=== PATIENT | male | born 1980 | race Caucasian/White ===

== ENCOUNTER 2017-06-27 00:56 | Emergency (ER) | payer SELFPAY ==
[2017-06-27 00:56] VITALS: BMI 33.3
[2017-06-27 01:22] VITALS: RESP 20; TEMP 98.1; O2SAT 98
--- NOTE | 2017-06-27 01:58 | C.PDOC ---
History Of Present Illness 36 yo male come for evaluation of urinary frequency, dysuria gradually developed for past 3 days. Today, developed Right sided lower back pain. Admits , (+) unprotected sexual contact. Otherwise, pt denies fever, chills, sore throat, abd. pian, N/V, hematuria, testicular pain or swelling, penile discharges or lesion. Ambulate to Ed for evaluation, not in any apparent distress. Time Seen by Provider: 06/27/17 01:27 Chief Complaint (Nursing): Male Genitourinary History Per: Patient Past Medical History Reviewed: Historical Data, Nursing Documentation, Vital Signs Vital Signs: Last Vital Signs Temp 98.1 F 06/27/17 01:19 Pulse 69 06/27/17 01:19 Resp 20 06/27/17 01:19 BP 126/81 06/27/17 01:19 Pulse Ox 98 06/27/17 02:55 - Medical History PMH: No Chronic Diseases, Sexually Transmitted Disease Family History: States: Unknown Family Hx - Social History Hx Tobacco Use: Yes Hx Alcohol Use: Yes Hx Substance Use: Yes - Immunization History Hx Tetanus Toxoid Vaccination: Yes Hx Influenza Vaccination: No Hx Pneumococcal Vaccination: No Review Of Systems Except As Marked, All Systems Reviewed And Found Negative. Constitutional: Negative for: Fever, Chills ENT: Negative for: Throat Pain Cardiovascular: Negative for: Chest Pain Respiratory: Negative for: Cough, Shortness of Breath Gastrointestinal: Negative for: Vomiting, Abdominal Pain, Diarrhea Genitourinary: Positive for: Dysuria, Frequency. Negative for: Hematuria, Penile Discharge, Scrotal Pain, Penile Pain Musculoskeletal: Positive for: Back Pain Skin: Negative for: Rash Neurological: Negative for: Weakness, Numbness Physical Exam - Physical Exam Appears: Well, Non-toxic, No Acute Distress Skin: Normal Color, Warm, Dry, No Rash Head: Normacephalic Eye(s): bilateral: PERRL Nose: No Flaring, No Discharge Oral Mucosa: Moist, No Drooling Throat: No Erythema, No Drooling Neck: Trachea Midline, Supple Cardiovascular: Rhythm Regular Respiratory: No Decreased Breath Sounds, No Accessory Muscle Use, No Stridor, No Wheezing Gastrointestinal/Abdominal: Soft, No Tenderness, No Distention, No Guarding, No Rebound Back: No CVA Tenderness, Paraspinal Tenderness (Right lumbar) Extremity: Normal ROM, No Pedal Edema, No Deformity, No Swelling Neurological/Psych: Oriented x3, Normal Speech, Normal Motor, Normal Sensation, Normal Reflexes ED Course And Treatment O2 Sat by Pulse Oximetry: 98 Pulse Ox Interpretation: Normal Progress Note: On re-evlauation, pt is afebrile, hemodynamicaly stable. NOn- toxic. Tolerate po well in ED. ENT: no acute findings, uvula midline, no edema. Neck: Supple, (-) meningeal sign. Lungs: CTA B/L, BS equal B/L. Abd: benign, (-) guaridng, (-) rebound. Back: (-) CVA tenderness. UA results review , no acute findings. Pt has clinical findings c/w dysuria s/p unprotected sexual contact r/o STD. Pt advised. Ref. to Follow up with PMD, Urology in 2- 3 days for re-eval. return to Ed if any worsening or new changes. Disposition Counseled Patient/Family Regarding: Studies Performed, Diagnosis, Need For Followup, Rx Given - Disposition Referrals: [facility] at [facility] [Outside] Kushal Granda Jr., MD [Staff Provider] - Disposition: HOME/ ROUTINE Disposition Time: 01:59 Condition: STABLE Additional Instructions: Follow up with PMD, Urology in 2-3 days for re-evaluation. return to ED if any worsening or new changes. Instructions: Urethritis Forms: [employer] (Honduran) - Clinical Impression Clinical Impression: UTI (urinary tract infection), Sexually transmissible disease
[2017-06-27 02:06] LABS: SQUAMOUS EPITHIAL < 1 /hpf (0-5); URINE BACTERIA RARE (<OCC); URINE BILIRUBIN NEGATIVE (NEGATIVE); URINE BLOOD NEGATIVE (NEGATIVE); URINE CALCIUM OXALATE CRYSTALS FEW /hpf (<OCC); URINE CLARITY Clear (Clear); URINE COLOR Yellow (YELLOW); URINE GLUCOSE (UA) NORMAL (Normal); URINE LEUKOCYTE ESTERASE NEG Leu/uL (Negative); URINE PROTEIN NEGATIVE (NEGATIVE)
[2017-06-27] MEDS ORDERED: cefTRIAXone (Rocephin) 250 mg Inj IM STA (02:50)
[2017-06-27 03:35] VITALS: BP 127/65; PULSE 67
== END 2017-06-27 03:35 | disposition home or self-care (01) ==
LOC: C.ER 00:56
DX: N39.0 Urinary tract infection, site not specified (principal); Z20.2 Contact with and (suspected) exposure to infections with a predominantly sexual mode of transmission
CPT/HCPCS: 81001; 87086; 96372; 99284; J0696

== ENCOUNTER 2017-07-11 00:42 | Emergency (ER) | payer SELFPAY ==
[2017-07-11 00:42] VITALS: BMI 33.3
[2017-07-11] MEDS ORDERED: Sodium Chloride 0.9% 1,000 ML IV ONE ×2 (01:09)
--- NOTE | 2017-07-11 01:12 | C.PDOC ---
History Of Present Illness 37 year old male presents to the ER with a complaint of left flank pain that radiates to the groin for the past few days, associated with frequency, nausea and mild diarrhea. Denies dysuria, hematuria, or fever. Chief Complaint (Nursing): Abdominal Pain History Per: Patient History/Exam Limitations: no limitations Onset/Duration Of Symptoms: Days Current Symptoms Are (Timing): Still Present Radiation Of Pain To:: None Quality Of Discomfort: Unable To Describe Associated Symptoms: Nausea, Diarrhea, Urinary Symptoms (Frequency, no dysuria or hematuria). denies: Fever, Vomiting Exacerbating Factors: None Alleviating Factors: None Recent travel outside of the [place]: No Past Medical History Reviewed: Historical Data, Nursing Documentation, Vital Signs Vital Signs: Last Vital Signs Temp 99.1 F 07/11/17 00:52 Pulse 75 07/11/17 00:52 Resp 20 07/11/17 00:52 BP 123/83 07/11/17 00:52 Pulse Ox 96 07/11/17 01:25 - Medical History PMH: Sexually Transmitted Disease Family History: States: Unknown Family Hx - Social History Hx Tobacco Use: Yes Hx Alcohol Use: Yes Hx Substance Use: Yes - Immunization History Hx Tetanus Toxoid Vaccination: Yes Hx Influenza Vaccination: No Hx Pneumococcal Vaccination: No Review Of Systems Constitutional: Negative for: Fever, Chills Gastrointestinal: Positive for: Nausea, Diarrhea. Negative for: Vomiting Genitourinary: Positive for: Frequency. Negative for: Dysuria, Hematuria Musculoskeletal: Positive for: Back Pain (Left flank radiating to the groin) Physical Exam - Physical Exam Appears: Non-toxic Skin: Normal Color, Warm, Dry Head: Atraumatic, Normacephalic Eye(s): bilateral: Normal Inspection Oral Mucosa: Dry (Slightly) Chest: Symmetrical, No Tenderness Cardiovascular: Rhythm Regular Respiratory: Normal Breath Sounds, No Rales, No Rhonchi, No Wheezing Gastrointestinal/Abdominal: Soft, No Tenderness, No Guarding, No Rebound Back: CVA Tenderness (Left) Neurological/Psych: Oriented x3, Normal Speech ED Course And Treatment - Laboratory Results Result Diagrams: 07/11/17 01:23 07/11/17 01:23 O2 Sat by Pulse Oximetry: 96 (Room air) Pulse Ox Interpretation: Normal Progress Note: CT abd/pel, blood work, and urinalysis ordered. Bentyl, toradol, and IV fluids administered. Disposition Counseled Patient/Family Regarding: Diagnosis - Disposition Referrals: [facility] at [facility] [Outside] Disposition: HOME/ ROUTINE Disposition Time: 03:30 Condition: STABLE Prescriptions: Dicyclomine [Bentyl] 10 mg PO QID PRN #15 cap PRN Reason: Gi Distress Instructions: Acute Abdomen (Belly Pain), Adult (DC) Forms: [employer] (Romanian) - POA Present On Arrival: None - Clinical Impression Clinical Impression: Abdominal pain - Scribe Statement The provider has reviewed the documentation as recorded by the Scribe Vivek Espinoza All medical record entries made by the Scribe were at my direction and personally dictated by me. I have reviewed the chart and agree that the record accurately reflects my personal performance of the history, physical exam, medical decision making, and the department course for this patient. I have also personally directed, reviewed, and agree with the discharge instructions and disposition.
[2017-07-11 01:26] LABS: BASO % 0.3 % (0.0-2.0); EOS # 0.1 K/uL (0.0-0.7); EOS % 1.6 % (0.0-4.0); LYMPH # 2.3 K/uL (1.0-4.3); LYMPH % 33.8 % (20.0-40.0); MEAN CELL VOLUME 88.8 fL (80.0-94.0); MEAN CORPUSCULAR HEMOGLOBIN 30.8 pg (27.0-31.0); MEAN CORPUSCULAR HGB CONC 34.7 g/dL (33.0-37.0); MONO # 0.6 K/uL (0.0-0.8); MONO % 9.3 % (0.0-10.0); NEUT # 3.8 K/uL (1.8-7.0); RBC 4.54 Mil/uL (4.40-5.90); RED CELL DISTRIBUTION WIDTH 13.9 % (11.5-14.5); WHITE BLOOD COUNT 6.9 K/uL (4.8-10.8)
[2017-07-11] MEDS ORDERED: Sodium Chloride 0.9% 1,000 ML ONE (01:27)
[2017-07-11 01:38] LABS: ALB/GLOB RATIO 1.3 (1.0-2.1); ALBUMIN 4.4 g/dL (3.5-5.0); ALT/SGPT 21 U/L (21-72); AST/SGOT 23 U/L (17-59); BLOOD UREA NITROGEN 18 mg/dL (9-20); CALCIUM 8.7 mg/dl (8.6-10.4); GFR AFRICAN-AMERICAN > 60; GFR NON-AFRICAN AMERICAN > 60; LIPASE 45 U/L (23-300)
[2017-07-11 01:46] LABS: SQUAMOUS EPITHIAL < 1 /hpf (0-5); URINE BILIRUBIN NEGATIVE (NEGATIVE); URINE BLOOD NEGATIVE (NEGATIVE); URINE CLARITY Clear (Clear); URINE COLOR Yellow (YELLOW); URINE GLUCOSE (UA) NORMAL (Normal); URINE LEUKOCYTE ESTERASE NEG Leu/uL (Negative); URINE PROTEIN NEGATIVE (NEGATIVE)
--- NOTE | 2017-07-11 02:59 | CT ---
EXAM: CT Abdomen and Pelvis Without Intravenous Contrast CLINICAL HISTORY: 37 years old, male; Pain; Abdominal pain; Additional info: Left flank pain to groin TECHNIQUE: Axial computed tomography images of the abdomen and pelvis without intravenous contrast. All CT scans at this facility use one or more dose reduction techniques, viz.: automated exposure control; ma/kV adjustment per patient size (including targeted exams where dose is matched to indication; i.e. head); or iterative reconstruction technique. Coronal and sagittal reformatted images were created and reviewed. COMPARISON: No relevant prior studies available. FINDINGS: Limitations: Lack of intravenous contrast. Motion artifact - mild. Lung bases: Minimal atelectasis/scarring. ABDOMEN: Liver: Unremarkable. Gallbladder and bile ducts: No calcified stones. No ductal dilation. Pancreas: Unremarkable. No ductal dilation. Spleen: No splenomegaly. Adrenals: No mass. Kidneys and ureters: No renal calculi. No hydronephrosis. Stomach and bowel: Probable underdistention of LEFT colon. No definite mural thickening. No obstruction. PELVIS: Appendix: Normal caliber. No inflammation. Bladder: Unremarkable. No stones. Reproductive: Unremarkable as visualized. ABDOMEN and PELVIS: Intraperitoneal space: No significant fluid collection. No free air. Bones/joints: No acute fracture. Soft tissues: Small umbilical hernia containing fat. Vasculature: Mild atherosclerotic disease of iliac arteries. No aneurysm. Lymph nodes: No pathologically enlarged lymph nodes. IMPRESSION: 1. No definite CT evidence of urolithiasis. 2. Incidental/non-acute findings are described above.
[2017-07-11 04:00] VITALS: BP 154/90; PULSE 65; RESP 16; TEMP 98.5; O2SAT 97
== END 2017-07-11 04:03 | disposition home or self-care (01) ==
LOC: C.ER 00:42
DX: R10.30 Lower abdominal pain, unspecified (principal)
CPT/HCPCS: 74176; 80053; 81001; 83690; 85025; 87086; 96361; 96372; 96374; 99284; J0500; J1885; J7040

== ENCOUNTER 2017-11-04 20:26 | Emergency (ER) | payer SELFPAY ==
[2017-11-04 20:26] VITALS: BMI 33.3
[2017-11-04 20:32] VITALS: BP 127/82; PULSE 81; RESP 20; TEMP 98.3; O2SAT 100
--- NOTE | 2017-11-04 20:47 | C.PDOC ---
History Of Present Illness 37 year old male presents to ED for evaluation of frequent urination and mild lower back pain for the last few days. Patient states he was diagnosed as a pre- diabetic 2 years ago but did not follow up. Denies tingling, numbness, fever, nausea, vomiting, and other associated symptoms. Time Seen by Provider: 11/04/17 20:28 Chief Complaint (Nursing): Back Pain History Per: Patient History/Exam Limitations: no limitations Onset/Duration Of Symptoms: Days Current Symptoms Are (Timing): Still Present Severity: Mild Past Medical History Reviewed: Historical Data, Nursing Documentation, Vital Signs Vital Signs: Last Vital Signs Temp 98.3 F 11/04/17 20:30 Pulse 81 11/04/17 20:30 Resp 20 11/04/17 20:30 BP 127/82 11/04/17 20:30 Pulse Ox 100 11/04/17 21:03 - Medical History PMH: Sexually Transmitted Disease Family History: States: Unknown Family Hx - Social History Hx Tobacco Use: Yes Hx Alcohol Use: Yes Hx Substance Use: Yes - Immunization History Hx Tetanus Toxoid Vaccination: Yes Hx Influenza Vaccination: No Hx Pneumococcal Vaccination: No Review Of Systems Except As Marked, All Systems Reviewed And Found Negative. Constitutional: Negative for: Fever, Chills Gastrointestinal: Negative for: Nausea, Vomiting Genitourinary: Positive for: Frequency. Negative for: Dysuria, Incontinence, Hematuria Musculoskeletal: Positive for: Back Pain (mild back pain ) Neurological: Negative for: Weakness, Numbness Physical Exam - Physical Exam Appears: Non-toxic, No Acute Distress Skin: Normal Color, Warm, Dry, No Rash Head: Atraumatic, Normacephalic Eye(s): bilateral: Normal Inspection Oral Mucosa: Moist Throat: No Erythema, No Exudate Neck: Normal ROM, No Midline Cervical Tenderness, No Paracervical Tenderness, Supple Chest: Symmetrical Cardiovascular: Rhythm Regular, No Friction Rub, No Murmur Respiratory: Normal Breath Sounds, No Rales, No Rhonchi, No Stridor Gastrointestinal/Abdominal: Normal Exam, Soft, No Tenderness Back: Normal Inspection, No CVA Tenderness, No Vertebral Tenderness, No Paraspinal Tenderness Extremity: Normal ROM, No Swelling Neurological/Psych: Oriented x3, Normal Speech, Normal Motor Gait: Steady ED Course And Treatment O2 Sat by Pulse Oximetry: 100 (RA) Pulse Ox Interpretation: Normal Medical Decision Making Medical Decision Making: Plan: --Blood Sugar finger stick --Urinalysis --Urine Culture --Chlamydia/GC RNA, TMA Patient treated for urinary frequency and possible urethritis with rocephin and zithromax Disposition - Disposition Referrals: Neri Ha MD [Staff Provider] - Disposition: HOME/ ROUTINE Disposition Time: 21:29 Condition: STABLE Additional Instructions: Follow up with the medical doctor within 1-2 days. Return if worsened. Instructions: Dysuria, Adult (DC) Forms: [employer] (North Korean) - Clinical Impression Clinical Impression: Urinary frequency, Urethritis - PA / RADIOLOGIC TECHNOLOGIST CHIEF / Resident Statement MD/DO has reviewed & agrees with the documentation as recorded. - Scribe Statement The provider has reviewed the documentation as recorded by the Scribe (Yari Sims) All medical record entries made by the Scribe were at my direction and personally dictated by me. I have reviewed the chart and agree that the record accurately reflects my personal performance of the history, physical exam, medical decision making, and the department course for this patient. I have also personally directed, reviewed, and agree with the discharge instructions and disposition.
[2017-11-04 21:16] LABS: URINE BACTERIA RARE (<OCC); URINE BILIRUBIN NEGATIVE (NEGATIVE); URINE BLOOD 1+ (NEGATIVE); URINE CLARITY Clear (Clear); URINE COLOR Yellow (YELLOW); URINE GLUCOSE (UA) NORMAL (Normal); URINE LEUKOCYTE ESTERASE NEG Leu/uL (Negative); URINE PROTEIN NEGATIVE (NEGATIVE)
[2017-11-04] MEDS ORDERED: cefTRIAXone 250 MG, Lidocaine Hydrochloride 1% 1 ML IM ONE (21:26)
== END 2017-11-04 22:03 | disposition home or self-care (01) ==
LOC: C.ER 20:26
DX: N34.2 Other urethritis (principal); R35.0 Frequency of micturition; R73.03 Prediabetes; Z72.0 Tobacco use
CPT/HCPCS: 81001; 82948; 87086; 87491; 87591; 96372; 99283; J0696